=== PATIENT | female | born 1950 | race Caucasian/White ===

== ENCOUNTER 2017-10-06 19:07 | Emergency (ER) | payer MEDICARE, OTHER ==
[~2017-10-06] VITALS: Ht 160 cm; Wt 63.5 kg
[~2017-10-06 19:07] MED LIST: ALBUAER3 INH; ALEN1TAB48 PO; AZIT500T2 PO; CALCTAB75 PO; CLOZ100T PO; DONE10TA7 PO; FLUT50SP EACH NARE; GLIM2TAB PO; MEDR4PAK PO; METF1000 PO; OMEP20TA93 PO; PRAV40TA2 PO; RAMI1.252 PO; SITA1TAB2 PO
[2017-10-06 19:10] VITALS: BP 198/93; PULSE 92; RESP 16; TEMP 98.5; O2SAT 97
[2017-10-06] MEDS ORDERED: BUPR150CR PO (19:24)
[2017-10-06] MEDS ORDERED: LURA120T PO (19:24)
[2017-10-06] MEDS ORDERED: BENZ0.5T PO (19:24)
--- NOTE | 2017-10-06 19:28 | PD ---
HPI Chief Complaint: Fall Time Seen by Provider: 19:16 Travel History International Travel<30 days: No Contact w/Intl Traveler<30days: No Traveled to known affect area: No History of Present Illness HPI 67-year-old female brought in by [facility] for evaluation of head injury after mechanical trip and fall. The patient reports that she fell on a curb in a parking lot. She fell forward and struck her forehead against the ground. She did not lose consciousness. She sustained a laceration to her left forehead and abrasions to her bilateral anterior knees. She complains of some mild to moderate forehead and facial pain. Mild neck pain. No upper or lower extremity pain. No back pain. She was able to ambulate after the fall. She takes aspirin daily for chronic back pain. No other antiplatelets or anticoagulants. No visual disturbance. No paresthesias or motor deficits. PFSH Past Medical History Asthma: Yes Bipolar Disorder: Yes Anxiety: Yes Depression: Yes Heart Rhythm Problems: No Cancer: No Cardiovascular Problems: Yes High Cholesterol: Yes Congestive Heart Failure: No Cirrhosis: Yes COPD: Yes Diabetes: Yes Diminished Hearing: No Endocrine: Yes Genitourinary: No Headaches: Yes Hypertension: Yes Implanted Vascular Access Dvce: No Musculoskeletal: No Neurologic: Yes Psychiatric: Yes (PARANOID SCHIZOPHRENIC) Reproductive: No Respiratory: Yes Schizophrenia: Yes Seizures: No Sleep Apnea: No PNEUMOCCOCAL Vaccine (Year): 2 ?: Not Menopausal: Yes : 3 Para: 0 Miscarriage: 3 Ectopic : Yes Past Surgical History Abdominal Surgery: No Appendectomy: Yes Cardiac Surgery: No Cholecystectomy: Yes Ear Surgery: No Endocrine Surgery: No Eye Surgery: Yes (CATARCT SURGERY) Genitourinary Surgery: Yes (GALL BLADDER REMOVED) Gynecologic Surgery: Yes (ECTOPIC ) Hysterectomy: Yes Oral Surgery: No Thoracic Surgery: No Other Surgery: Yes Social History Alcohol Use: No Tobacco Use: No (QUIT OCT 2014) Substance Use: No Allergies-Medications (Allergen,Severity, Reaction): Coded Allergies: Sulfa (Sulfonamide Antibiotics) (Unverified Allergy, Severe, Anaphylaxis, 07/26/17) atorvastatin (Unverified Allergy, Severe, Musclespasm, 07/26/17) Reported Meds & Prescriptions Reported Meds & Active Scripts Active Metformin (Metformin HCl) 1,000 Mg Tab 1,000 Mg PO DAILY With a meal Januvia (Sitagliptin Phosphate) 100 Mg Tab 100 Mg PO DAILY Omeprazole 20 Mg Tab 20 Mg PO DAILY Ramipril 1.25 Mg Cap 1.25 Mg PO DAILY Fluticasone Nasal [place] 50 Mcg/Act Naspr 50 Mcg EACH NARE BID 50 mcg/spray Clozaril (Clozapine) 100 Mg Tab 100 Mg PO DAILY Pravastatin 40 Mg Tab 40 Mg PO DAILY Donepezil 10 Mg Tab 10 Mg PO HS Glimepiride 2 Mg Tab 2 Mg PO DAILY Take with breakfast or first main meal Proair Hfa 8.5 GM Inh (Albuterol Sulfate) 90 Mcg/Act Aer 1 Puff INH Q6HR PRN 108 mcg/actuation Reported Benztropine (Benztropine Mesylate) 0.5 Mg Tab 0.5 Mg PO BID Wellbutrin SR 12 HR (Bupropion HCl) 150 Mg Tab 150 Mg PO Q12HR Latuda (Lurasidone) 120 Mg Tab 120 Mg PO DAILY Review of Systems Except as stated in HPI: all other systems reviewed are Neg Physical Exam Narrative GENERAL: Well-developed, well nourished, awake, alert, GCS 15, no apparent distress. SKIN: Focused skin assessment warm/dry. Approximately 5 cm laceration to the left forehead of moderate depth, no active bleeding, no visible contaminants. Superficial abrasion to face between upper lip and nose. Superficial abrasions to bilateral anterior knees. HEAD: Skin exam as above. Normocephalic. EYES: Pupils equal, round, 3 mm, reactive to light, EOMI. no scleral icterus. No injection or drainage. ENT: No nasal bleeding or discharge. Mucous membranes pink and moist. No nasal septal hematoma. NECK: Trachea midline. No JVD. CARDIOVASCULAR: Regular rate and rhythm. No murmur appreciated. RESPIRATORY: No accessory muscle use. Clear to auscultation. Breath sounds equal bilaterally. GASTROINTESTINAL: Abdomen soft, non-tender, nondistended. MUSCULOSKELETAL: No obvious deformities. No clubbing. No cyanosis. No edema. Skin exam as above. Normal range of motion in all joints and extremities without obvious deformity. NEUROLOGICAL: Awake and alert. No obvious cranial nerve deficits. Motor grossly within normal limits. Normal speech. PSYCHIATRIC: Appropriate mood and affect; insight and judgment normal. Data Data Last Documented VS Vital Signs Date Time Temp Pulse Resp B/P (MAP) Pulse Ox O2 Delivery O2 Flow Rate FiO2 10/06/17 19:24 97 Room Air 10/06/17 19:10 98.5 92 16 198/93 (128) Orders Orders Ct Brain W/O Iv Contrast(Rout) (10/06/17 ) Ct Facial Bones W/O Iv Cont (10/06/17 ) Ct Cerv Spine W/O Contrast (10/06/17 ) Tetanus/Diphtheria Tox Adult (Tetanus/Di (10/06/17 19:30) Lidocaine 1% Inj (50 Ml) (Xylocaine 1% I (10/06/17 19:30) Lidocaine 1% Inj (Xylocaine 1% Inj) (10/06/17 20:00) MDM Medical Decision Making Medical Screen Exam Complete: Yes Emergency Medical Condition: Yes Differential Diagnosis Mechanical fall, intracranial trauma, cervical spine injury, facial bone fracture, forehead laceration Narrative Course Vital signs reviewed. CT head: No acute intracranial findings. CT facial bones: No fractures. CT cervical spine: CONCLUSION: 1. No evidence of fracture. 2. Severe degenerative findings of the cervical spine with severe central canal stenosis at C4-5. Patient was made aware of all findings. Laceration repaired by my medical student under my supervision. See procedure note. Patient has no numbness or motor deficits to her upper extremities. This is likely a chronic issue with her severe spinal stenosis and she can follow-up with her primary care physician regarding this. She was provided a copy of all of her CT reports. Suture removal in 5 days. Patient advised on when to return to the emergency Department sooner. She verbalizes understanding and agreement with plan. Procedures Procedure Narrative Laceration repair: Forehead laceration was repaired by my medical student Mamie under my supervision. LACERATION LOCATION: Left forehead LENGTH: 4 cm NUMBER OF STITCHES/JOHN: Eight 5-0 prolene simple interrupted sutures REPAIR: The area of the laceration was prepped with Betadine and sterilely draped. The laceration was infiltrated with 4 cc of 1% lidocaine. The wound was copiously irrigated and explored without evidence of foreign body, tendon injury or neurovascular injury. The wound was closed using Eight 5-0 prolene simple interrupted sutures. This was a single layer repair. A sterile dressing was applied. The patient was advised to keep the dressing clean and dry. Patient tolerated the procedure well. Diagnosis Primary Impression: Fall Qualified Codes: W19.XXXA - Unspecified fall, initial encounter Additional Impressions: Head injury Qualified Codes: S09.90XA - Unspecified injury of head, initial encounter Forehead laceration Qualified Codes: S01.81XA - Laceration without foreign body of other part of head, initial encounter Abrasions of multiple sites Referrals: Primary Care Physician 3 days Additional Instructions: Follow-up with your primary care physician this week. Have stitches removed in 5 days. Return to the emergency Department sooner for worsening symptoms or any other concerns as discussed. Disposition: 01 DISCHARGE HOME Condition: Stable Girma Perez MD Oct 06, 2017 19:28
[2017-10-06] MEDS ORDERED: TETANUS/DIPHTHERIA TOXOID ADULT 0.5 ML VIAL IM ONE (19:30)
[2017-10-06] MEDS ORDERED: LIDOCAINE HCL 1% 50 ML VIAL INFIL ONE (19:30)
[2017-10-06] MEDS ORDERED: LIDOCAINE HCL 1% 20 ML VIAL INFIL ONE (20:00)
--- NOTE | 2017-10-06 20:46 | RADRPT ---
EXAM DATE/TIME: 10/06/2017 19:27 [facility] COMPARISON: No previous studies available for comparison. INDICATIONS : Trip and fall today. Laceration to forehead and upper lip. No LOC RADIATION DOSE: 49.90 CTDIvol (mGy) MEDICAL HISTORY : None SURGICAL HISTORY : None. ENCOUNTER: Initial ACUITY: 1 day PAIN SCALE: 6/10 LOCATION: cranial TECHNIQUE: Multiple contiguous axial images were obtained of the head. Using automated exposure control and adj ustment of the mA and/or kV according to patient size, radiation dose was kept as low as reasonably a chievable to obtain optimal diagnostic quality images. DICOM format image data is available electro nically for review and comparison. FINDINGS: CEREBRUM: The ventricles are normal for age. No evidence of midline shift, mass lesion, hemorrhage or acute in farction. No extra-axial fluid collections are seen. POSTERIOR FOSSA: The cerebellum and brainstem are intact. The 4th ventricle is midline. The cerebellopontine angle i s unremarkable. EXTRACRANIAL: Mild partial opacification right maxillary sinus. SKULL: The calvaria is intact. No evidence of skull fracture. CONCLUSION: No acute intracranial findings. Benjamin Vigil MD on October 06, 2017 at 20:42 Board Certified Radiologist. This report was verified electronically.
--- NOTE | 2017-10-06 20:48 | RADRPT ---
EXAM DATE/TIME: 10/06/2017 19:27 [facility] COMPARISON: No previous studies available for comparison. INDICATIONS : Trip and fall tday. Laceration to forehead and upper lip RADIATION DOSE: 23.38 CTDIvol (mGy) MEDICAL HISTORY : None SURGICAL HISTORY : None. denetal ENCOUNTER: Initial ACUITY: 1 day PAIN SCORE: 6/10 LOCATION: facial TECHNIQUE: Volumetric scanning of the facial bones was performed. Using automated exposure control and adjustme nt of the mA and/or kV according to patient size, radiation dose was kept as low as reasonably achiev able to obtain optimal diagnostic quality images. DICOM format image data is available [employer]Road [place] y for review and comparison. FINDINGS: Orbits intact. No evidence of fracture. 1 cm polyp inferior aspect right maxillary sinus. Paranasal sinuses are otherwise clear. CONCLUSION: No evidence of fracture. Benjamin Vigil MD on October 06, 2017 at 20:44 Board Certified Radiologist. This report was verified electronically.
--- NOTE | 2017-10-06 20:52 | RADRPT ---
EXAM DATE/TIME: 10/06/2017 19:27 [facility] COMPARISON: No previous studies available for comparison. INDICATIONS : Trip and fall today. Neck pain RADIATION DOSE: 25.60 CTDIvol (mGy) MEDICAL HISTORY : None SURGICAL HISTORY : None. ENCOUNTER: Initial ACUITY: 1 day PAIN SCALE: 6/10 LOCATION: neck TECHNIQUE: Volumetric scanning of the cervical spine was performed. Multiplanar reconstructions in the sagittal, coronal and oblique axial planes were performed. Using automated exposure control and adjustment o f the mA and/or kV according to patient size, radiation dose was kept as low as reasonably achievable to obtain optimal diagnostic quality images. DICOM format image data is available electronically f or review and comparison. FINDINGS: VERTEBRAE: Normal vertebral body height. ALIGNMENT: No evidence of subluxation. C2-C3: Severe right-sided facet arthrosis. No evidence of focal disc protrusion. Central canal normal diamet er. Neural foraminal diameters within normal limits. C3-C4: Severe left-sided facet arthrosis. Mild left neural foraminal narrowing. Central canal diameter withi n normal limits. C4-C5: Broad-based disc osteophyte complex left greater than right moderate bilateral facet arthrosis. Sever e central canal narrowing. Severe left neural foraminal narrowing. Moderate right neural foraminal na rrowing. C5-C6: Broad-based disc osteophyte complex left greater than right resulting in moderate severity left-sided central canal narrowing and moderate severity left neural foraminal narrowing. Severe left-sided fac et arthrosis. C6-C7: Broad-based disc osteophyte complex and moderate severity left-sided facet arthrosis. Moderate severi ty central canal stenosis. Severe left-sided neural foraminal stenosis. Moderate right sided neural f oraminal stenosis. C7-T1: The bony spinal canal is normal in size. No evidence of disc bulge or herniation. The neural forami na are bilaterally patent. CONCLUSION: 1. No evidence of fracture. 2. Severe degenerative findings of the cervical spine with severe central canal stenosis at C4-5. Benjamin Vigil MD on October 06, 2017 at 20:46 Board Certified Radiologist. This report was verified electronically.
[2017-10-06 21:00] VITALS: BP 182/78; PULSE 78; RESP 16; O2SAT 99
[2017-10-06 21:30] VITALS: BP 184/84
== END 2017-10-06 21:32 | disposition home or self-care (01) ==
LOC: PHED 19:07
DX: S09.90XA Unspecified injury of head, initial encounter (principal); S01.81XA Laceration without foreign body of other part of head, initial encounter; S80.212A Abrasion, left knee, initial encounter; S80.211A Abrasion, right knee, initial encounter; M54.2 Cervicalgia; Z23 Encounter for immunization; W18.39XA Other fall on same level, initial encounter; Y92.481 Parking lot as the place of occurrence of the external cause; J44.9 Chronic obstructive pulmonary disease, unspecified; E11.9 Type 2 diabetes mellitus without complications; I10 Essential (primary) hypertension; E78.00 Pure hypercholesterolemia, unspecified; F41.8 Other specified anxiety disorders; F20.9 Schizophrenia, unspecified; Z79.84 Long term (current) use of oral hypoglycemic drugs; Z79.82 Long term (current) use of aspirin
CPT/HCPCS: 12013; 70450; 70486; 72125; 90471; 90714

== ENCOUNTER 2017-10-11 08:42 | Emergency (ER) | payer MEDICARE, OTHER ==
[~2017-10-11] VITALS: Ht 160 cm; Wt 65.5 kg
[~2017-10-11 08:42] MED LIST changes: -ALEN1TAB48 PO; -AZIT500T2 PO; +BENZ0.5T PO; +BUPR150CR PO; -CALCTAB75 PO; +LURA120T PO; -MEDR4PAK PO
[2017-10-11 08:43] VITALS: BP 178/81; PULSE 103; RESP 17; TEMP 98.5; O2SAT 95
--- NOTE | 2017-10-11 09:03 | PD ---
HPI Chief Complaint: Wound/Suture/Staple Re-Check Time Seen by Provider: 08:49 Travel History International Travel<30 days: No Contact w/Intl Traveler<30days: No Traveled to known affect area: No History of Present Illness HPI This is a 67-year-old female who presents to the emergency department having had sutures placed in her forehead 5 days ago. She presents for suture removal. She says the wound has been healing fine with no discharge or redness. PFSH Past Medical History Asthma: Yes Bipolar Disorder: Yes Anxiety: Yes Depression: Yes Heart Rhythm Problems: No Cancer: No Cardiovascular Problems: Yes High Cholesterol: Yes Congestive Heart Failure: No Cirrhosis: Yes COPD: Yes Diabetes: Yes Patient Takes Glucophage: No Diminished Hearing: No Endocrine: Yes Gastrointestinal Disorders: No Genitourinary: No Headaches: Yes Hypertension: Yes Implanted Vascular Access Dvce: No Musculoskeletal: No Neurologic: Yes Psychiatric: Yes (PARANOID SCHIZOPHRENIC) Reproductive: No Respiratory: Yes Schizophrenia: Yes Seizures: No Sleep Apnea: No PNEUMOCCOCAL Vaccine (Year): 2 Menopausal: Yes : 3 Para: 0 Miscarriage: 3 Ectopic : Yes Past Surgical History Abdominal Surgery: No Appendectomy: Yes Cardiac Surgery: No Cholecystectomy: Yes Ear Surgery: No Endocrine Surgery: No Eye Surgery: Yes (CATARCT SURGERY) Genitourinary Surgery: Yes (GALL BLADDER REMOVED) Gynecologic Surgery: Yes (ECTOPIC ) Hysterectomy: Yes Neurologic Surgery: No Oral Surgery: No Thoracic Surgery: No Other Surgery: Yes Social History Alcohol Use: No Tobacco Use: No (QUIT OCT 2014) Substance Use: No Allergies-Medications (Allergen,Severity, Reaction): Coded Allergies: Sulfa (Sulfonamide Antibiotics) (Unverified Allergy, Severe, Anaphylaxis, 10/11/17) atorvastatin (Unverified Allergy, Severe, Musclespasm, 10/11/17) Reported Meds & Prescriptions Reported Meds & Active Scripts Active Metformin (Metformin HCl) 1,000 Mg Tab 1,000 Mg PO DAILY With a meal Januvia (Sitagliptin Phosphate) 100 Mg Tab 100 Mg PO DAILY Omeprazole 20 Mg Tab 20 Mg PO DAILY Ramipril 1.25 Mg Cap 1.25 Mg PO DAILY Fluticasone Nasal [place] 50 Mcg/Act Naspr 50 Mcg EACH NARE BID 50 mcg/spray Clozaril (Clozapine) 100 Mg Tab 100 Mg PO DAILY Pravastatin 40 Mg Tab 40 Mg PO DAILY Donepezil 10 Mg Tab 10 Mg PO HS Glimepiride 2 Mg Tab 2 Mg PO DAILY Take with breakfast or first main meal Proair Hfa 8.5 GM Inh (Albuterol Sulfate) 90 Mcg/Act Aer 1 Puff INH Q6HR PRN 108 mcg/actuation Reported Benztropine (Benztropine Mesylate) 0.5 Mg Tab 0.5 Mg PO BID Wellbutrin SR 12 HR (Bupropion HCl) 150 Mg Tab 150 Mg PO Q12HR Latuda (Lurasidone) 120 Mg Tab 120 Mg PO DAILY Review of Systems General / Constitutional: No: Fever, Chills Respiratory: No: Shortness of Breath Physical Exam Narrative GENERAL: Well-appearing, no acute distress, nontoxic SKIN: Well-healing laceration on the mid forehead with no surrounding erythema, induration or drainage. HEAD: Atraumatic. Normocephalic. ENT: No nasal bleeding or discharge. Moist mucous membranes MUSCULOSKELETAL: No obvious deformities. No clubbing. No cyanosis. No edema. NEUROLOGICAL: Awake and alert. No obvious cranial nerve deficits. Motor grossly within normal limits. Normal speech. PSYCHIATRIC: Appropriate mood and affect; insight and judgment normal. Data Data Last Documented VS Vital Signs Date Time Temp Pulse Resp B/P (MAP) Pulse Ox O2 Delivery O2 Flow Rate FiO2 10/11/17 08:43 98.5 103 17 178/81 (113) 95 MDM Medical Decision Making Medical Screen Exam Complete: Yes Emergency Medical Condition: Yes Differential Diagnosis Laceration, wound infection Narrative Course This is a 67-year-old female who presents to the emergency department for suture removal. Laceration is well-healing with no evidence of infection. Procedures Procedure Narrative 8 simple sutures were removed from forehead laceration. Patient tolerated the procedure well. Diagnosis Primary Impression: Visit for suture removal Patient Instructions: General Instructions Additional Instructions: If you develop fever, chills, redness or warmth of your wound return to the emergency room. Med/Other Pt SpecificInfo: No Change to Meds Disposition: 01 DISCHARGE HOME Condition: Stable Mayelin Ritter MD Oct 11, 2017 09:03
== END 2017-10-11 09:14 | disposition home or self-care (01) ==
LOC: PHEFT 08:42
DX: S01.81XD Laceration without foreign body of other part of head, subsequent encounter (principal)
CPT/HCPCS: 99281

== ENCOUNTER 2017-12-08 09:44 | Emergency (ER) | payer MEDICARE, OTHER ==
[~2017-12-08] VITALS: Ht 160 cm; Wt 60.0 kg
[2017-12-08 09:55] VITALS: BP 151/82; PULSE 101; RESP 18; TEMP 98.5; O2SAT 96
[2017-12-08] MEDS ORDERED: ORPHENADRINE INJ 60 MG/2 ML AMP IM ONE (10:45)
[2017-12-08] MEDS ORDERED: predniSONE 20 MG TAB PO ONE (10:45)
--- NOTE | 2017-12-08 10:46 | PD ---
HPI Chief Complaint: Back/ Neck Pain or Injury Time Seen by Provider: 10:26 Travel History International Travel<30 days: No Contact w/Intl Traveler<30days: No Traveled to known affect area: No History of Present Illness HPI 67-year-old female with history of paranoid schizophrenia, COPD, diabetes, spondylosis without myelopathy with chronic back pain presents emergency department complaining of low back pain that started 2 days ago. Patient states that the back pain just started and has become worse the last couple days. Patient states that she has pain with walking. Says she has numbness tingling bilateral lower extremities however, says that this is chronic. Says she has known "pinched nerves". Says that she is supposed to follow-up with Dr. Vick to address "bone spurs in her spinal cord". She denies any recent falls, trauma, loss of bowel or bladder function, fever, chills, IV drug use. Says she "cannot take anything" for this pain but would like something for this pain. She denies chronic pain medication use. PFSH Past Medical History Asthma: Yes Bipolar Disorder: Yes Anxiety: Yes Depression: Yes Heart Rhythm Problems: No Cancer: No Cardiovascular Problems: Yes High Cholesterol: Yes Congestive Heart Failure: No Cirrhosis: Yes COPD: Yes Diabetes: Yes Patient Takes Glucophage: No Diminished Hearing: No Endocrine: Yes Gastrointestinal Disorders: No Genitourinary: No Headaches: Yes Hypertension: Yes Implanted Vascular Access Dvce: No Musculoskeletal: No Neurologic: Yes Psychiatric: Yes (PARANOID SCHIZOPHRENIC) Reproductive: No Respiratory: Yes Schizophrenia: Yes Seizures: No Sleep Apnea: No PNEUMOCCOCAL Vaccine (Year): 2 Menopausal: Yes : 3 Para: 0 Miscarriage: 3 Ectopic : Yes Past Surgical History Abdominal Surgery: No Appendectomy: Yes Cardiac Surgery: No Cholecystectomy: Yes Ear Surgery: No Endocrine Surgery: No Eye Surgery: Yes (CATARCT SURGERY) Genitourinary Surgery: Yes ( ) Gynecologic Surgery: Yes (ECTOPIC ) Hysterectomy: Yes Neurologic Surgery: No Oral Surgery: No Thoracic Surgery: No Other Surgery: Yes Social History Alcohol Use: No Tobacco Use: No (QUIT OCT 2014) Substance Use: No Allergies-Medications (Allergen,Severity, Reaction): Coded Allergies: Sulfa (Sulfonamide Antibiotics) (Verified Allergy, Severe, Anaphylaxis, ) atorvastatin (Verified Allergy, Severe, Musclespasm, 10/11/17) oxycodone (Verified Allergy, Unknown, 10/11/17) Reported Meds & Prescriptions Reported Meds & Active Scripts Active Prednisone 5 Mg Tab 5 Mg PO DAILY 5 Days Januvia (Sitagliptin Phosphate) 100 Mg Tab 100 Mg PO DAILY Omeprazole 20 Mg Tab 20 Mg PO DAILY Ramipril 1.25 Mg Cap 1.25 Mg PO DAILY Fluticasone Nasal [place] 50 Mcg/Act Naspr 50 Mcg EACH NARE BID 50 mcg/spray Clozaril (Clozapine) 100 Mg Tab 100 Mg PO DAILY Pravastatin 40 Mg Tab 40 Mg PO DAILY Donepezil 10 Mg Tab 10 Mg PO HS Glimepiride 2 Mg Tab 2 Mg PO DAILY Take with breakfast or first main meal Proair Hfa 8.5 GM Inh (Albuterol Sulfate) 90 Mcg/Act Aer 1 Puff INH Q6HR PRN 108 mcg/actuation Reported Benztropine (Benztropine Mesylate) 0.5 Mg Tab 0.5 Mg PO BID Wellbutrin SR 12 HR (Bupropion HCl) 150 Mg Tab 150 Mg PO Q12HR Latuda (Lurasidone) 120 Mg Tab 120 Mg PO DAILY Review of Systems Except as stated in HPI: all other systems reviewed are Neg Physical Exam Narrative GENERAL: Well-developed, well-nourished in no apparent distress SKIN: Focused skin assessment warm/dry. HEAD: Atraumatic. Normocephalic. EYES: Pupils equal and round. No scleral icterus. No injection or drainage. ENT: No nasal bleeding or discharge. Mucous membranes pink and moist. NECK: Trachea midline. No JVD. No midline tenderness CARDIOVASCULAR: Regular rate and rhythm. No murmur appreciated. RESPIRATORY: No accessory muscle use. Clear to auscultation. Breath sounds equal bilaterally. GASTROINTESTINAL: Abdomen soft, non-tender, nondistended. Hepatic and splenic margins not palpable. MUSCULOSKELETAL: No obvious deformities. No clubbing. No cyanosis. No edema. Mild tenderness palpation bilateral sacroiliac joints and surrounding musculature NEUROLOGICAL: Awake and alert. No obvious cranial nerve deficits. Motor grossly within normal limits. Normal speech. Shuffling gait PSYCHIATRIC: Appropriate mood and slightly flat affect. Data Data Last Documented VS Vital Signs Date Time Temp Pulse Resp B/P (MAP) Pulse Ox O2 Delivery O2 Flow Rate FiO2 3/16/18 09:55 98.5 101 18 151/82 (105) 96 Orders Orders Prednisone (Deltasone) (12/08/17 10:45) Orphenadrine Inj (Norflex Inj) (12/08/17 10:45) Ed Discharge Order (12/08/17 11:08) [facility] Medical Decision Making Medical Screen Exam Complete: Yes Emergency Medical Condition: Yes Differential Diagnosis Muscle spasms, lumbar fracture, lumbar sprain, sacroiliitis Narrative Course 67-year-old female with a history of back pain presents emergency department complaining of low back pain is worsened over the last 3 days. Patient states that she "cannot take anything for her pain" at the recommendation of her neurologist, Dr. Lloyd. I asked the patient what her expectations were of this visit today and she says that she would like some medication for her pain. After further discussion, patient states that she is unable to take Tylenol or Motrin for her pain. She does not know why. No red flag symptoms She is a poor historian and after review of the EMR it appears the patient does have diabetes mellitus, multiple medical conditions, will administer low-dose prednisone and muscle relaxers for her pain. Will avoid narcotic pain medications as I do not believe this is indicated at this point. Imaging studies are also not indicated as patient is followed by neurologist and her primary care physician. Patient be discharged with low-dose prednisone as she does have what appears to be neuropathy. Diagnosis Primary Impression: Low back pain Qualified Codes: M54.5 - Low back pain Referrals: Neurologist Additional Instructions: Follow-up the neurologist as discussed. I recommend calling the office today for further evaluation Follow-up with primary care physician within 2-3 days. Take all medications as prescribed. Perform light stretches of the lower back and legs, and alternate heat and ice packs. If you develop increased pain, weakness, fever, chills, or bowel or bladder issues, return to the ED for further treatment and evaluation. Scripts Prednisone (Prednisone) 5 Mg Tab 5 MG PO DAILY for 5 Days, #5 TAB 0 Refills Prov: Fe Parker 12/08/17 Disposition: 01 DISCHARGE HOME Condition: Stable Fe Parker Dec 08, 2017 10:46
[2017-12-08] MEDS ORDERED: PRED5TAB PO (10:54)
[2017-12-14] MEDS ORDERED: NORC5TAB PO (14:23)
[2017-12-14] MEDS ORDERED: MIRT45TA PO (14:23)
[2017-12-14] MEDS ORDERED: METF1000 PO (14:23)
[2017-12-14] MEDS ORDERED: ALEN1TAB48 PO (14:23)
== END 2017-12-08 17:29 | disposition home or self-care (01) ==
LOC: NEPD 09:44
DX: M54.5 Low back pain (principal); F20.0 Paranoid schizophrenia; I10 Essential (primary) hypertension; Z87.891 Personal history of nicotine dependence
CPT/HCPCS: 96372; 99283; J2360; J7512

== ENCOUNTER → 2017-12-14 | Outpatient (CLI) | payer MEDICARE, OTHER ==
[~2017-12-14] MED LIST changes: +ALEN1TAB48 PO; +MIRT45TA PO; +NORC5TAB PO; +PRED5TAB PO
[2017-12-14 13:44] LABS: AUTOMATED NEUTROPHIL # 4.9 TH/MM3 (1.8-7.7); BASOPHIL % 0.4 % (0.0-2.0); EOSINOPHIL # 0.1 TH/MM3 (0-0.4); EOSINOPHIL % 1.3 % (0.0-4.0); LYMPH % 33.3 % (9.0-44.0); LYMPHOCYTE # 2.8 TH/MM3 (1.0-4.8); MEAN CELL VOLUME 93.8 FL (80.0-100.0); MEAN CORPUSCULAR HEMOGLOBIN 31.2 PG (27.0-34.0); MEAN CORPUSCULAR HGB CONC 33.3 % (32.0-36.0); MEAN PLATELET VOLUME 8.2 FL (7.0-11.0); MONO % 6.2 % (0.0-8.0); MONOCYTE # 0.5 TH/MM3 (0-0.9); NEUT % 58.8 % (16.0-70.0); PLATELET COUNT 210 TH/MM3 (150-450); RED BLOOD COUNT 4.48 MIL/MM3 (4.00-5.30); RED CELL DISTRIBUTION WIDTH 12.7 % (11.6-17.2); WHITE BLOOD COUNT 8.4 TH/MM3 (4.0-11.0)
[2017-12-14 13:56] LABS: PROTHROMBIN TIME - PATIENT 10.6 SEC (9.8-11.6)
[2017-12-14 14:47] LABS: BICARBONATE 25.5 MEQ/L (21.0-32.0); CALCIUM 9.5 MG/DL (8.5-10.1); CREATININE 1.2 MG/DL (0.50-1.00)
[2017-12-14 14:56] LABS: BILIRUBIN, URINE NEG (NEG); BLOOD, URINE NEG (NEG); GLUCOSE,URINE NEG (NEG); KETONE, URINE NEG (NEG); MUCUS URINE FEW /lpf (OCC); NITRITE,URINE NEG (NEG); PH, URINE 5.5 (5.0-8.5); SQUAMOUS EPITHELIAL CELL URINE 1 /hpf (0-5); URINE COLOR YELLOW (YELLW/STRAW); URINE LEUKOCYTE ESTERASE SMALL (NEG)
--- NOTE | 2017-12-14 16:37 | RADRPT ---
EXAM DATE/TIME: 12/14/2017 14:12 [facility] COMPARISON: CHEST SINGLE AP, October 31, 2014, 11:11. CT PULMONARY ANGIOGRAM, October 31, 2014, 14:03. CHEST SINGLE AP, November 07, 2014, 10:04. CHEST PA & LAT, November 14, 2014, 20:16. INDICATIONS : Evaluate for pneumonia, pneumothorax or comminicable disease. Pre-op for cervical surgery 12/18/17. MEDICAL HISTORY : Hypertension. Diabetes mellitus type II. SURGICAL HISTORY : Left humeral repair. ENCOUNTER: Initial ACUITY: 1 day PAIN SCORE: 0/10 LOCATION: Bilateral chest FINDINGS: Chronic basilar pleural-parenchymal opacities, right worse than left are stable. No evidence of effus ion. Cardiac contours are stable and satisfactory. Degenerative changes are present in the spine. The re is an previous fracture fixation involving the left proximal humerus. CONCLUSION: Stable chest appearance. No acute disease Addison Jacobson MD on December 14, 2017 at 16:34 Board Certified Radiologist. This report was verified electronically.
--- NOTE | 2017-12-15 19:42 | EKG ---
Date Performed: 12/14/2017 Time Performed: 13:19:48 PTAGE: 67 years EKG: Sinus rhythm LOW QRS VOLTAGE IN PRECORDIAL LEADS POSSIBLE ANTERIOR MYOCARDIAL INFARCTION, PROBABLY OLD CONSIDER A NTEROSEPTAL NM, AGE INDETERMINATE CONSIDER INFERIOR ISCHEMIA AND LATERAL ISCHEMIA BORDERLINE ECG PREVIOUS TRACING : 11/14/14 @ 2006 DOCTOR: Vic Lindsey Interpretating Date/Time 12/15/2017 19:40:24
== END ==
LOC: CPRE 12:57
PROVIDERS: ATTEND Neurological Surgery
DX: Z01.810 Encounter for preprocedural cardiovascular examination (principal); Z01.811 Encounter for preprocedural respiratory examination; Z01.812 Encounter for preprocedural laboratory examination; Z01.818 Encounter for other preprocedural examination; G95.9 Disease of spinal cord, unspecified; M47.22 Other spondylosis with radiculopathy, cervical region; M47.12 Other spondylosis with myelopathy, cervical region; M79.609 Pain in unspecified limb; R94.31 Abnormal electrocardiogram [ECG] [EKG]
CPT/HCPCS: 36415; 71046; 80048; 81001; 85025; 85610; 85730; 87640; 87641; 93005